=== PATIENT | male | born 1955 | race Caucasian/White ===

== ENCOUNTER 2018-08-29 03:00 | Emergency (ER) | payer BC ==
[2018-08-29] MEDS: Lidocaine 2% Jelly 5 ML Tube ONE (03:05)
[2018-08-29 03:29] VITALS: BP 144/71
--- NOTE | 2018-08-29 03:32 | EDM.PDOC ---
ED HPI GENERAL MEDICAL PROBLEM - General Chief Complaint: Genitourinary Problem Stated Complaint: urinary retention Time Seen by Provider: 08/29/18 03:15 Source of Information: Reports: Patient History Limitations: Reports: No Limitations - History of Present Illness INITIAL COMMENTS - FREE TEXT/NARRATIVE: 63 YO WM presents to ER with urinary retention which began last night around 9pm. Pt reports he was out with some friends tonight and he had a fairly normal urination followed by decreased stream around 9pm. Pt reports he woke around 2pm unable to urinate much, just dribbling. Pt denies any recent dysuria, fever/ chills, back pain or foul smelling urine. Pt with history of BPH and has had a pimentel cath in the past. Onset: Today Onset Date: 08/28/18 Onset Time: 21:00 Duration: Day(s): (1) Quality: Reports: Pressure Severity: Mild Improves with: Reports: None Worsens with: Reports: None Associated Symptoms: Reports: No Other Symptoms Groin Pain Score (Numeric/FACES): 8 - Related Data Allergies Allergy/AdvReac Type Severity Reaction Status Date / Time No Known Drug Allergies Allergy NKDA Verified 08/29/18 03:17 Home Meds: Home Meds Gatifloxacin 2 drop EYELF QID 08/29/18 [History] Nitrofurantoin Monohyd/M-Cryst [Macrobid 100 mg Capsule] 100 mg PO BID #6 capsule 08/29/18 [Rx] prednisoLONE Acetate [Prednisolone Acetate] 1 drop EYELF QID 08/29/18 [History] ED ROS GENERAL - Review of Systems Review Of Systems: See Below Constitutional: Reports: No Symptoms HEENT: Reports: No Symptoms Respiratory: Reports: No Symptoms Cardiovascular: Reports: No Symptoms Endocrine: Reports: No Symptoms GI/Abdominal: Reports: No Symptoms : Reports: Urgency, Urinary Retention Musculoskeletal: Reports: No Symptoms Skin: Reports: No Symptoms Neurological: Reports: No Symptoms Psychiatric: Reports: No Symptoms Hematologic/Lymphatic: Reports: No Symptoms Immunologic: Reports: No Symptoms ED EXAM, RENAL/ - Physical Exam Exam: See Below Exam Limited By: No Limitations General Appearance: Alert, WD/WN, No Apparent Distress Head: Atraumatic, Normocephalic Neck: Normal Inspection, Supple, Non-Tender, Full Range of Motion Respiratory/Chest: No Respiratory Distress, Lungs Clear, Normal Breath Sounds, No Accessory Muscle Use, Chest Non-Tender Cardiovascular: Normal Peripheral Pulses, Regular Rate, Rhythm, No Edema, No Gallop, No JVD, No Murmur, No Rub GI/Abdominal: Normal Bowel Sounds, Soft, Non-Tender, No Organomegaly, No Distention, No Abnormal Bruit, No Mass (Male) Exam: No Hernia, Normal Inspection, Normal Prostate, Circumcised Back Exam: Normal Inspection, Full Range of Motion, NT Extremities: Normal Inspection, Normal Range of Motion, Non-Tender, Normal Capillary Refill, No Pedal Edema Neurological: Alert, Oriented, CN II-XII Intact, Normal Cognition, Normal Gait, Normal Reflexes, No Motor/Sensory Deficits Psychiatric: Normal Affect, Normal Mood Skin Exam: Warm, Dry, Intact, Normal Color, No Rash Lymphatic: No Adenopathy Course - Vital Signs Last Recorded V/S: Last Vital Signs Temp 37.1 C 08/29/18 03:20 Pulse 110 H 08/29/18 03:20 Resp 22 H 08/29/18 03:20 BP 164/73 H 08/29/18 03:20 Pulse Ox 95 08/29/18 03:20 - Orders/Labs/Meds Orders: Active Orders 24 hr Category Date Time Status Pimentel Catheter Insertion [Insert Urinary Catheter] [OM. Care 08/29/18 03:30 Ordered PC] Q24H Urinary Catheter Assessment [RC] ASDIRECTED Care 08/29/18 03:25 Ordered Meds: Medications Discontinued Medications Generic Name Dose Route Start Last Admin Trade Name Sundayq PRN Reason Stop Dose Admin Lidocaine HCl Confirm 08/29/18 03:03 Xylocaine 2% Jelly Administered 08/29/18 03:04 Dose 5 ml .ROUTE .STK-MED ONE Departure - Departure Time of Disposition: 03:37 Disposition: Home, Self-Care 01 Condition: Good Clinical Impression: Retention of urine BPH (benign prostatic hyperplasia) Qualifiers: Lower urinary tract symptom presence: symptoms present Lower urinary tract symptom detail: urinary retention Qualified Code(s): N40.1 - Benign prostatic hyperplasia with lower urinary tract symptoms; R33.8 - Other retention of urine - Discharge Information Prescriptions: Nitrofurantoin Monohyd/M-Cryst [Macrobid 100 mg Capsule] 100 mg PO BID #6 capsule Instructions: Indwelling Urinary Catheter Care, Adult, Decision Aid - Benign Prostatic Hyperplasia Referrals: Long,Diana B, [employer] [Nurse Practitioner] - Additional Instructions: 1. discharge home 2. Macrobid 100mg PO BID x 3 days prophylaxis 3. call clinic for appointment for pimentel cath removal- follow up for further evaluation and treatment in am 4. return to ER for worsening symptoms - My Orders Last 24 Hours: My Active Orders 08/29/18 03:25 Urinary Catheter Assessment [RC] ASDIRECTED 08/29/18 03:30 Pimentel Catheter Insertion [Insert Urinary Catheter] [OM.PC] Q24H - Assessment/Plan Last 24 Hours: My Active Orders 08/29/18 03:25 Urinary Catheter Assessment [RC] ASDIRECTED 08/29/18 03:30 Pimentel Catheter Insertion [Insert Urinary Catheter] [OM.PC] Q24H Assessment:: 1. urinary retention Plan: 1. discharge home 2. Macrobid 100mg PO BID x 3 days prophylaxis 3. call clinic for appointment for pimentel cath removal- follow up for further evaluation and treatment in am 4. return to ER for worsening symptoms
== END 2018-08-29 04:10 | disposition home or self-care (01) ==
LOC: KA.ED 03:00
DX: N40.1 Benign prostatic hyperplasia with lower urinary tract symptoms (principal); R33.9 Retention of urine, unspecified; Z79.899 Other long term (current) drug therapy
CPT/HCPCS: 51702; 99283